=== PATIENT | male | born 1965 ===

== ENCOUNTER 2020-01-07 16:59 | Inpatient (IN) ==
[2020-01-07] MEDS ORDERED: Naloxone 0.4 MG/ML INJ IVP PRN (19:04)
[2020-01-07] MEDS ORDERED: *HR* Dextrose 50 % in Water (Vial) 50 ML VIAL IVP PRN (19:11)
[2020-01-07] MEDS ORDERED: Dextrose Gel 15 GM/37.5 ML TUBE PO PRN ×2 (19:11)
[2020-01-07] MEDS ORDERED: D5% in Water 1,000 ML IVC PRN (19:11)
[2020-01-07] MEDS ORDERED: *HR* Heparin 5,000 UNIT/ML VIAL CRRT PRN (19:41)
[2020-01-07] MEDS ORDERED: Lidocaine -MPF 2% 5 ML VIAL ONE (20:00)
[2020-01-07 21:26] LABS: Hematocrit 29.9 % (37.5-50.1); Hemoglobin 9.4 g/dL (12.9-16.9)
[2020-01-07 21:31] LABS: INR 1.2; Prothrombin Time 13.7 Seconds (9.4-12.1)
[2020-01-07] MEDS: 0.9 % Sodium Chloride 1,000 ML PRIME SCH ×2 (23:06→23:29)
[2020-01-07] MEDS: 0.9 % Sodium Chloride 1,000 ML IVC SCH (23:13)
[2020-01-07] MEDS: PrismaSATE BGK 4/2.5 5,000 ML CRRT SCH ×2 (23:36)
[2020-01-08] MEDS: Norepinephrine 4 MG/254 ML IV.SOLN IVC SCH ×2 (00:11→22:44)
[2020-01-08] MEDS: Insulin LISPRO 300 UNITS/3 ML VIAL SQ SCH ×4 (00:13→18:25)
[2020-01-08] MEDS: PrismaSATE BGK 4/2.5 5,000 ML CRRT SCH ×8 (03:08→13:32)
[2020-01-08 04:42] LABS: Immature Reticulocyte % 10.8 % (11.0-38.0); Retculocyte # 0.02 M/mcL (0.05-0.10); Reticulocyte % 0.8 % (1.6-2.8)
[2020-01-08 04:52] LABS: Basophils % 0.7 %; Eosinophils # 0.1 K/mcL (0.0-0.6); Eosinophils % 3.3 %; Hematocrit 28.3 % (37.5-50.1); Immature Granulocytes % 0.7 % (0-4); Immature Platelets 4.2 % (1.1-6.1); Lymphocytes # 0.8 K/mcL (0.6-4.6); Lymphocytes % 27.6 %; Mean Corpuscular HGB Conc 31.8 g/dL (31.6-35.5); Mean Corpuscular Hemoglobin 34.9 pg (28.0-33.3); Mean Corpuscular Volume 109.7 fL (83.0-100.0); Mean Platelet Volume 10.3 fL (9.4-12.4); Monocytes # 0.3 K/mcL (0.0-1.3); Monocytes % 11.3 %; Neutrophils # 1.7 K/mcL (1.6-8.9); Platelet Count 93 K/mcL (140-400); Red Blood Count 2.58 M/mcL (4.19-5.50); Red Cell Distribution Width 12.6 % (11.5-14.5); Segmented Neutrophils % 56.4 %
[2020-01-08 04:57] LABS: Uric Acid 10.8 mg/dL (2.3-7.6)
[2020-01-08] MEDS: 0.9 % Sodium Chloride 1,000 ML PRIME SCH (05:09)
[2020-01-08 05:12] LABS: Calcium 7.5 mg/dL (8.6-10.3); Magnesium 1.8 mg/dL (1.6-2.6); Phosphorous 4.8 mg/dL (2.7-4.5); Potassium 4.8 mEq/L (3.5-5.1)
[2020-01-08 05:20] LABS: Folate 7.8 ng/mL (3.0-16.0)
[2020-01-08] MEDS: Famotidine 20 MG/2 ML VIAL IVP SCH ×2 (05:23→18:24)
[2020-01-08] MEDS ORDERED: *HR* Heparin 5,000 UNIT/ML VIAL SQ SCH (06:00)
[2020-01-08] MEDS: 0.9 % Sodium Chloride 1,000 ML IVC SCH ×2 (08:31→15:03)
[2020-01-08] MEDS ORDERED: *HR* Heparin 5,000 UNIT/ML VIAL ONE (16:23)
[2020-01-09] MEDS: 0.9 % Sodium Chloride 1,000 ML IVC SCH ×2 (00:59→11:22)
[2020-01-09 03:57] LABS: Immature Granulocytes % 0.3 % (0-4)
[2020-01-09 03:58] LABS: Eosinophils # 0.1 K/mcL (0.0-0.6); Eosinophils % 2.7 %; Hematocrit 22.8 % (37.5-50.1); Hemoglobin 7.5 g/dL (12.9-16.9); Immature Platelets 4.9 % (1.1-6.1); Lymphocytes # 0.9 K/mcL (0.6-4.6); Mean Corpuscular HGB Conc 32.9 g/dL (31.6-35.5); Mean Corpuscular Hemoglobin 34.7 pg (28.0-33.3); Mean Corpuscular Volume 105.6 fL (83.0-100.0); Mean Platelet Volume 10.5 fL (9.4-12.4); Monocytes # 0.6 K/mcL (0.0-1.3); Neutrophils # 1.8 K/mcL (1.6-8.9); Red Blood Count 2.16 M/mcL (4.19-5.50); Red Cell Distribution Width 12.3 % (11.5-14.5); White Blood Count 3.3 K/mcL (4.3-11.1)
[2020-01-09 04:16] LABS: Platelet Count 68 K/mcL (140-400)
[2020-01-09 04:20] LABS: Albumin 3.4 g/dL (3.5-5.7); Albumin/Globulin Ratio 1.4 (1.1-2.2); Bilirubin,Total 0.3 mg/dL (0.3-1.0); Calcium 7.7 mg/dL (8.6-10.3); Globulin 2.4 g/dL (2.4-3.5); Potassium 3.8 mEq/L (3.5-5.1); Total Protein 5.8 g/dL (6.4-8.9)
[2020-01-09] MEDS: Famotidine 20 MG/2 ML VIAL IVP SCH (05:49)
[2020-01-09] MEDS ORDERED: Naloxone 0.4 MG/ML INJ IVP PRN (09:47)
[2020-01-09] MEDS ORDERED: *HR* Heparin 5,000 UNIT/ML VIAL CRRT PRN (09:47)
[2020-01-09] MEDS ORDERED: Norepinephrine 4 MG/254 ML IV.SOLN IVC SCH (09:47)
[2020-01-09] MEDS: Famotidine 20 MG TABLET PO SCH ×2 (11:22→20:55)
[2020-01-09] MEDS: gemfibroziL 600 MG TABLET PO SCH (20:55)
[2020-01-10] MEDS: 0.9 % Sodium Chloride 1,000 ML IVC SCH (00:20)
[2020-01-10 04:36] LABS: Hematocrit 20.9 % (37.5-50.1); Mean Corpuscular Volume 105.6 fL (83.0-100.0); Red Blood Count 1.98 M/mcL (4.19-5.50)
[2020-01-10 04:38] LABS: Eosinophils # 0.1 K/mcL (0.0-0.6); Eosinophils % 2.9 %; Hemoglobin 6.8 g/dL (12.9-16.9); Immature Granulocytes % 0.6 % (0-4); Immature Platelets 5.6 % (1.1-6.1); Lymphocytes % 24.3 %; Mean Corpuscular HGB Conc 32.5 g/dL (31.6-35.5); Mean Corpuscular Hemoglobin 34.3 pg (28.0-33.3); Mean Platelet Volume 10.5 fL (9.4-12.4); Monocytes % 18.6 %; Neutrophils # 1.9 K/mcL (1.6-8.9); Red Cell Distribution Width 12.1 % (11.5-14.5); Segmented Neutrophils % 53.6 %; White Blood Count 3.5 K/mcL (4.3-11.1)
[2020-01-10 04:40] LABS: Lymphocytes # 0.9 K/mcL (0.6-4.6); Monocytes # 0.7 K/mcL (0.0-1.3); Platelet Count 58 K/mcL (140-400)
[2020-01-10 04:55] LABS: Calcium 7.6 mg/dL (8.6-10.3); Potassium 3.6 mEq/L (3.5-5.1)
[2020-01-10] MEDS ORDERED: *HR* HYDROcodone/Acet 5/325 mg TABLET PO PRN (05:10)
[2020-01-10] MEDS: Acetaminophen 325 MG TABLET PO PRN ×2 (05:16→11:30)
[2020-01-10] MEDS ORDERED: 0.9 % Sodium Chloride 250 ML IVC SCH (06:30)
[2020-01-10] MEDS: Famotidine 20 MG TABLET PO SCH (07:58)
[2020-01-10] MEDS: Fluticasone Propionate Nasal 50 MCG/SPRAY BOTTLE NS SCH (07:58)
[2020-01-10] MEDS: gemfibroziL 600 MG TABLET PO SCH ×2 (07:58→20:31)
[2020-01-10] MEDS: Cyanocobalamin (B-12) 1,000 MCG TABLET PO SCH (07:58)
[2020-01-10] MEDS ORDERED: D5% in Water 1,000 ML IVC PRN (09:30)
[2020-01-10] MEDS ORDERED: Dextrose Gel 15 GM/37.5 ML TUBE PO PRN ×2 (09:30)
[2020-01-10] MEDS ORDERED: *HR* Dextrose 50 % in Water (Vial) 50 ML VIAL IVP PRN (09:30)
[2020-01-10 10:50] LABS: Estimated Average Glucose 318 mg/dl; Hemoglobin A1C 12.7 %
[2020-01-10] MEDS: carvediloL 6.25 MG TABLET PO SCH ×2 (11:27→16:38)
[2020-01-10] MEDS: Insulin LISPRO 300 UNITS/3 ML VIAL SQ SCH ×2 (11:34→16:38)
[2020-01-10 15:14] LABS: Hemoglobin 7.6 g/dL (12.9-16.9); Red Cell Distribution Width 13.6 % (11.5-14.5)
[2020-01-10 15:16] LABS: Eosinophils # 0.1 K/mcL (0.0-0.6); Eosinophils % 2.7 %; Immature Granulocytes % 0.3 % (0-4); Immature Platelets 6.1 % (1.1-6.1); Lymphocytes # 0.6 K/mcL (0.6-4.6); Lymphocytes % 19.7 %; Mean Corpuscular Hemoglobin 33.8 pg (28.0-33.3); Mean Corpuscular Volume 102.2 fL (83.0-100.0); Monocytes # 0.5 K/mcL (0.0-1.3); Monocytes % 17.7 %; Neutrophils # 1.8 K/mcL (1.6-8.9); Red Blood Count 2.25 M/mcL (4.19-5.50); Segmented Neutrophils % 59.6 %
[2020-01-10 15:21] LABS: Platelet Count 59 K/mcL (140-400)
[2020-01-10] MEDS: Piperacillin/Tazobactam 3.375 GM in 0.9 % Sodium Chloride Mini Bag 100 ML IVPB SCH (16:37)
[2020-01-10] MEDS: Pantoprazole 40 MG VIAL IVP SCH (16:37)
[2020-01-10] MEDS ORDERED: Insulin LISPRO 300 UNITS/3 ML VIAL SQ SCH (21:00)
[2020-01-11] MEDS: Piperacillin/Tazobactam 3.375 GM in 0.9 % Sodium Chloride Mini Bag 100 ML IVPB SCH ×3 (00:21→18:04)
[2020-01-11 05:38] LABS: INR 1.2; Prothrombin Time 13.2 Seconds (9.4-12.1)
[2020-01-11 05:41] LABS: Activated Partial Thrombo Time 26.3 Seconds (26.0-36.0)
[2020-01-11 05:59] LABS: Alanine Aminotransferase 22 Units/L (7-52); Albumin 3.6 g/dL (3.5-5.7); Albumin/Globulin Ratio 2.6 (1.1-2.2); Alkaline Phosphatase 30 Units/L (34-104); Aspartate Amino Transferase 100 Units/L (13-39); BUN/Creatinine Ratio 14 (6-26); Bilirubin,Total 0.7 mg/dL (0.3-1.0); Blood Urea Nitrogen 17 mg/dL (6-20); Calcium 7.9 mg/dL (8.6-10.3); Carbon Dioxide 29 mEq/L (23-29); Chloride 109 mEq/L (98-107); Globulin 1.4 g/dL (2.4-3.5); Glucose 163 mg/dL (70-105); Magnesium 1.9 mg/dL (1.6-2.6); Osmolality,Calculated 301 (280-300); Phosphorous 3.2 mg/dL (2.7-4.5); Potassium 4.1 mEq/L (3.5-5.1); Sodium 143 mEq/L (136-145); eGFR For African Americans > 60 (> 60); eGFR For Non-African Americans > 60 (> 60)
[2020-01-11] MEDS: Pantoprazole 40 MG VIAL IVP SCH ×2 (06:04→18:10)
[2020-01-11 06:51] LABS: Basophils % 0.3 %; Hemoglobin 8.7 g/dL (12.9-16.9); Immature Granulocytes % 0.6 % (0-4); Mean Platelet Volume 10.8 fL (9.4-12.4); Red Cell Distribution Width 15.1 % (11.5-14.5)
[2020-01-11 06:52] LABS: Eosinophils # 0.1 K/mcL (0.0-0.6); Hematocrit 25.6 % (37.5-50.1); Immature Platelets 5.9 % (1.1-6.1); Lymphocytes # 0.7 K/mcL (0.6-4.6); Lymphocytes % 20.8 %; Mean Corpuscular Hemoglobin 34.3 pg (28.0-33.3); Mean Corpuscular Volume 100.8 fL (83.0-100.0); Monocytes # 0.6 K/mcL (0.0-1.3); Neutrophils # 1.9 K/mcL (1.6-8.9); Red Blood Count 2.54 M/mcL (4.19-5.50); Segmented Neutrophils % 56.3 %; White Blood Count 3.3 K/mcL (4.3-11.1)
[2020-01-11 07:02] LABS: Platelet Count 71 K/mcL (140-400)
[2020-01-11 07:52] LABS: Platelet Estimate Slight Decrease (Normal)
[2020-01-11] MEDS: Cyanocobalamin (B-12) 1,000 MCG TABLET PO SCH (07:56)
[2020-01-11] MEDS: Insulin LISPRO 300 UNITS/3 ML VIAL SQ SCH ×4 (07:56→21:08)
[2020-01-11] MEDS: carvediloL 6.25 MG TABLET PO SCH ×2 (07:56→18:09)
[2020-01-11] MEDS: gemfibroziL 600 MG TABLET PO SCH ×2 (07:56→21:08)
[2020-01-11] MEDS: Fluticasone Propionate Nasal 50 MCG/SPRAY BOTTLE NS SCH (07:57)
[2020-01-11] MEDS ORDERED: Famotidine 20 MG TABLET PO SCH (09:00)
[2020-01-11] MEDS ORDERED: D5% in Water 1,000 ML IVC PRN (11:10)
[2020-01-11] MEDS ORDERED: *HR* HYDROcodone/Acet 5/325 mg TABLET PO PRN (11:10)
[2020-01-11] MEDS ORDERED: Acetaminophen 325 MG TABLET PO PRN (11:10)
[2020-01-11] MEDS ORDERED: *HR* Dextrose 50 % in Water (Vial) 50 ML VIAL IVP PRN (11:10)
[2020-01-11] MEDS ORDERED: Naloxone 0.4 MG/ML INJ IVP PRN (11:10)
[2020-01-11] MEDS ORDERED: Dextrose Gel 15 GM/37.5 ML TUBE PO PRN ×2 (11:10)
[2020-01-11] MEDS ORDERED: *HR* Propofol 200 MG/20 ML VIAL IVP ONE (15:25)
[2020-01-11] MEDS ORDERED: SODIUM CHLORIDE/NAHCO3/KCL/PEG 4,000 ML SOLN.RECON PO ONE (15:47)
[2020-01-12] MEDS: Piperacillin/Tazobactam 3.375 GM in 0.9 % Sodium Chloride Mini Bag 100 ML IVPB SCH ×3 (00:27→17:31)
[2020-01-12 04:46] LABS: Hemoglobin 8.5 g/dL (12.9-16.9); Mean Corpuscular Volume 101.2 fL (83.0-100.0); Mean Platelet Volume 10.4 fL (9.4-12.4)
[2020-01-12 04:48] LABS: Basophils % 0.5 %; Eosinophils # 0.2 K/mcL (0.0-0.6); Eosinophils % 4.6 %; Hematocrit 25.6 % (37.5-50.1); Immature Granulocytes % 1.4 % (0-4); Lymphocytes # 0.9 K/mcL (0.6-4.6); Lymphocytes % 24.1 %; Mean Corpuscular HGB Conc 33.2 g/dL (31.6-35.5); Mean Corpuscular Hemoglobin 33.6 pg (28.0-33.3); Monocytes # 0.5 K/mcL (0.0-1.3); Monocytes % 14.1 %; Neutrophils # 2.1 K/mcL (1.6-8.9); Platelet Count 106 K/mcL (140-400); Red Blood Count 2.53 M/mcL (4.19-5.50); Red Cell Distribution Width 14.3 % (11.5-14.5); Segmented Neutrophils % 55.3 %; White Blood Count 3.7 K/mcL (4.3-11.1)
[2020-01-12 04:58] LABS: INR 1.2; Prothrombin Time 13.6 Seconds (9.4-12.1)
[2020-01-12 05:00] LABS: Activated Partial Thrombo Time 33.7 Seconds (26.0-36.0)
[2020-01-12 05:05] LABS: Alanine Aminotransferase 41 Units/L (7-52); Albumin 3.5 g/dL (3.5-5.7); Albumin/Globulin Ratio 1.3 (1.1-2.2); Alkaline Phosphatase 38 Units/L (34-104); Aspartate Amino Transferase 42 Units/L (13-39); BUN/Creatinine Ratio 13 (6-26); Bilirubin,Total 0.4 mg/dL (0.3-1.0); Blood Urea Nitrogen 19 mg/dL (6-20); Calcium 7.5 mg/dL (8.6-10.3); Carbon Dioxide 22 mEq/L (23-29); Chloride 107 mEq/L (98-107); Globulin 2.7 g/dL (2.4-3.5); Glucose 136 mg/dL (70-105); Magnesium 1.3 mg/dL (1.6-2.6); Osmolality,Calculated 296 (280-300); Phosphorous 2.6 mg/dL (2.7-4.5); Potassium 3.1 mEq/L (3.5-5.1); Sodium 141 mEq/L (136-145); Total Protein 6.2 g/dL (6.4-8.9); eGFR For African Americans > 60 (> 60); eGFR For Non-African Americans 51 (> 60)
[2020-01-12] MEDS: Pantoprazole 40 MG VIAL IVP SCH ×2 (05:15→17:30)
[2020-01-12] MEDS: gemfibroziL 600 MG TABLET PO SCH ×2 (08:41→20:42)
[2020-01-12] MEDS: Loratadine 10 MG TABLET PO SCH (08:41)
[2020-01-12] MEDS: Cyanocobalamin (B-12) 1,000 MCG TABLET PO SCH (08:42)
[2020-01-12] MEDS: Fluticasone Propionate Nasal 50 MCG/SPRAY BOTTLE NS SCH (08:43)
[2020-01-12] MEDS: carvediloL 6.25 MG TABLET PO SCH ×2 (08:44→17:29)
[2020-01-12] MEDS: Insulin LISPRO 300 UNITS/3 ML VIAL SQ SCH ×4 (08:45→20:36)
[2020-01-12] MEDS ORDERED: Potassium Phosphate 44 MEQ in 0.9 % Sodium Chloride 250 ML IVPB ONE (10:35)
[2020-01-12] MEDS ORDERED: Potassium Chloride Elixir 20 MEQ/15 ML UDC PO ONE (10:35)
[2020-01-13] MEDS: Piperacillin/Tazobactam 3.375 GM in 0.9 % Sodium Chloride Mini Bag 100 ML IVPB SCH (00:23)
[2020-01-13 02:50] LABS: Basophils % 0.4 %; Eosinophils # 0.2 K/mcL (0.0-0.6); Hemoglobin 8.3 g/dL (12.9-16.9); Immature Granulocytes % 1.5 % (0-4); Lymphocytes # 1.2 K/mcL (0.6-4.6); Lymphocytes % 25.5 %; Mean Corpuscular HGB Conc 33.2 g/dL (31.6-35.5); Mean Corpuscular Hemoglobin 33.9 pg (28.0-33.3); Mean Platelet Volume 10.1 fL (9.4-12.4); Monocytes # 0.6 K/mcL (0.0-1.3); Monocytes % 12.7 %; Neutrophils # 2.7 K/mcL (1.6-8.9); Nucleated Red Blood Cells 0.4 /100 WBC (0); Platelet Count 123 K/mcL (140-400); Red Blood Count 2.45 M/mcL (4.19-5.50); Red Cell Distribution Width 13.7 % (11.5-14.5); Segmented Neutrophils % 54.9 %; White Blood Count 4.8 K/mcL (4.3-11.1)
[2020-01-13 03:06] LABS: Calcium 7.1 mg/dL (8.6-10.3); Potassium 3.1 mEq/L (3.5-5.1)
[2020-01-13] MEDS: Pantoprazole 40 MG VIAL IVP SCH (05:05)
[2020-01-13] MEDS ORDERED: Potassium Chloride Elixir 20 MEQ/15 ML UDC PO ONE (07:49)
[2020-01-13] MEDS: carvediloL 6.25 MG TABLET PO SCH (07:51)
[2020-01-13] MEDS: gemfibroziL 600 MG TABLET PO SCH (07:51)
[2020-01-13] MEDS: Cyanocobalamin (B-12) 1,000 MCG TABLET PO SCH (07:51)
[2020-01-13] MEDS: Loratadine 10 MG TABLET PO SCH (07:51)
[2020-01-13] MEDS: Fluticasone Propionate Nasal 50 MCG/SPRAY BOTTLE NS SCH (07:52)
[2020-01-13] MEDS: Insulin LISPRO 300 UNITS/3 ML VIAL SQ SCH ×2 (07:53→13:25)
[2020-01-13 10:43] VITALS: BP 125/72
[2020-01-13] MEDS ORDERED: Insulin DETEMIR 100 UNIT/ML X5UNITS SQ SCH (12:15)
[2020-01-13] MEDS ORDERED: *HR* Propofol 500 MG/50 ML BOTTLE IVP ONE (16:55)
[2020-01-13] MEDS ORDERED: Lidocaine -MPF 2% 5 ML VIAL SQ ONE (16:55)
== END 2020-01-13 16:56 | disposition home or self-care (01) | DRG 469 ==
LOC: ICNU 18:38 → SUATTDRO 18:38 → 3ANU 01-11 15:56
PROVIDERS: ADMIT Family Medicine; ATTEND Internal Medicine
PROC: ENDOEBX (2020-01-11 14:30)
PROC: ENDOCBX (2020-01-12 13:00)